=== PATIENT | female | born 1970 | race Caucasian/White ===

== ENCOUNTER 2019-03-10 12:08 | Emergency (ER) | payer SELFPAY ==
[~2019-03-10] VITALS: Wt 81.5 kg
--- NOTE | 2019-03-10 13:11 | ERD ---
ER Documentation Chief Complaint Chief Complaint POSSIBLE NEEDLESTICK ON RIGHT THIGH HPI 49-year-old female patient with a past medical history of anemia presents to the ED stating that she works for a cleaning company. States that she was cleaning an apartment, was taking out the trash and there was a needle that was sticking out of the trash bag and accidentally struck her right thigh. States that the needle was about 1 cm long. Reports that she was not actively bleeding. States that she cleaned her right thigh with hand destination coordinator. Patient reports that she does not know who this needle belongs to. Denies any chest pain, shortness of breath, nausea, vomiting, fever, chills, abdominal pain. Accident happened at 10:30am. ROS All systems reviewed and are negative except as per history of present illness. Medications Home Meds Active Scripts Dolutegravir Sodium (Tivicay) 50 Mg Tablet, 50 MG PO DAILY, #28 TAB Prov:JOSE SCHUMACHER PA-C 03/10/19 Emtricitabine-Tenofovir* (Truvada*) 200-300 Mg Tablet, 1 TAB PO DAILY for 28 Days, TAB Prov:JOSE SCHUMACHER PA-C 03/10/19 Allergies Allergies: Coded Allergies: No Known Allergy (Unverified , 03/10/19) PMhx/Soc Medical and Surgical Hx: pt denies Surgical Hx History of Surgery: No Anesthesia Reaction: No Hx Neurological Disorder: No Hx Respiratory Disorders: No Hx Cardiac Disorders: No Hx Psychiatric Problems: No Hx Alcohol Use: No Hx Substance Use: No Hx Tobacco Use: No FmHx Family History: No diabetes, No coronary disease Physical Exam Vitals Vital Signs Date Temp Pulse Resp B/P (MAP) Pulse Ox O2 O2 Flow FiO2 Time Delivery Rate 03/10/19 98.7 80 18 158/65 100 Room Air 15:42 (96) 03/10/19 98.8 71 18 170/71 100 12:09 (104) Physical Exam Const: [id number], well-nourished. In no acute distress. Head: Atraumatic, normocephalic Eyes: Normal Conjunctiva without injection ENT: Normal external ear, nose and mouth. Neck: Full range of motion. No meningismus. Resp: Clear to auscultation bilaterally. No wheezing, rhonchi, rales, or crackles. No accessory muscle use. No retractions. Cardio: Regular rate and rhythm, no murmurs Skin: No petechiae or rashes Back: No midline tenderness. No CVA tenderness. Ext: No cyanosis, or edema. Cap refill less than 2 seconds. Distal pulses intact bilaterally. Superficial punctate wound noted of the anterior thigh. No surrounding erythema, edema, purulent discharge, fluctuance or induration. Full range of motion with flexion, extension of bilateral knees as well as hip rotations. Neur: Awake and alert. Normal gait and coordination. Muscle strength 5/5. Sensation intact bilaterally. Psych: Normal Mood and Affect Result Diagram: 03/10/19 1247 03/10/19 1247 Results 24 hrs Laboratory Tests Test 03/10/19 12:47 03/10/19 12:54 03/10/19 15:14 White Blood Count 7.3 10^3/ul Red Blood Count 4.78 10^6/ul Hemoglobin 11.0 g/dl Hematocrit 37.1 % Mean Corpuscular Volume 77.6 fl Mean Corpuscular Hemoglobin 23.0 pg Mean Corpuscular 29.6 g/dl Hemoglobin Concent Red Cell Distribution Width 15.8 % Platelet Count 352 10^3/UL Mean Platelet Volume 11.2 fl Immature Granulocytes % 0.100 % Neutrophils % 59.3 % Lymphocytes % 30.4 % Monocytes % 7.6 % Eosinophils % 1.5 % Basophils % 1.1 % Nucleated Red Blood Cells % 0.0 /100WBC Immature Granulocytes # 0.010 10^3/ul Neutrophils # 4.3 10^3/ul Lymphocytes # 2.2 10^3/ul Monocytes # 0.6 10^3/ul Eosinophils # 0.1 10^3/ul Basophils # 0.1 10^3/ul Nucleated Red Blood Cells # 0.0 10^3/ul Sodium Level 142 mmol/L Potassium Level 4.7 mmol/L Chloride Level 109 mmol/L Carbon Dioxide Level 24 mmol/L Anion Gap 9 Blood Urea Nitrogen 11 mg/dl Creatinine 0.58 mg/dl Est Glomerular Filtrat Rate mL/min > 60 mL/min Glucose Level 92 mg/dl Calcium Level 9.2 mg/dl Total Bilirubin 0.8 mg/dl Direct Bilirubin 0.00 mg/dl Indirect Bilirubin 0.8 mg/dl Aspartate Amino Transf (AST/SGOT) 22 IU/L Alanine 30 IU/L Aminotransferase (ALT/SGPT) Alkaline Phosphatase 60 IU/L Total Protein 7.3 g/dl Albumin 4.3 g/dl Globulin 3.00 g/dl Albumin/Globulin Ratio 1.43 Hepatitis B Surface Antigen NEGATIVE Hepatitis B Surface Antibody NEGATIVE Hepatitis C Antibody NEGATIVE HIV (1&2) Antibody NEGATIVE POC Beta HCG, Qualitative NEGATIVE Procedures/MDM 49-year-old female patient with a past medical history of anemia presents the ED complaining of a right thigh needlestick injury. Patient is afebrile and nontoxic-appearing. A needlestick protocol blood draw was ordered for patient here in the ED which includes hepatitis B, hepatitis C and HIV. CBC: No leukocytosis. No e/o of systemic infection. No e/o anemia. CMP: No e/o severe acidosis, alkalosis, renal failure, diabetic ketoacidosis, liver disease Hep Bs Antigen - Negative Hep Bs Antibody - Negative Hepatitis C Antibody - Negative HIV 1and 2 Antibody- Negative Urine : Negative Patient's wound was also cleaned vigorously with soap and water here in the ED as patient only cleaned her right thigh with hand destination coordinator. HIV prophylaxis was discussed with patient since patient states that she does not know who the needle belongs to as well as their medical history, she would like the HIV Pap medications. This was also discussed with Abdulaziz pharmacist here at [facility] as well as recommended by Up to Date Guidelines - patient will be prescribed Truvada and Tivicay for 28 days and strictly instructed to follow-up with her primary care physician for repeat blood work and further evaluation and treatment. At this time there is low suspicion for any deep space infection, cellulitis, sepsis or other emergent conditions. Diagnosis: Needlestick injury Medications: Tivicay, Truvada Follow up with primary care physician in 1-2 days for repeat blood work as recommended. Instructed patient to return to the ED sooner for any worsening symptoms. Patient's questions were answered. Patient is hemodynamically stable. Patient understood and agreed with discharge plan. Patient discharged stable. Disclaimer: Inadvertent spelling and grammatical errors are likely due to EHR/dictation software use and do not reflect on the overall quality of patient care. Also, please note that the electronic time recorded on this note does not necessarily reflect the actual time of the patient encounter. Departure Diagnosis: Primary Impression: Needlestick injury accident Condition: Stable Patient Instructions: Standard Precautions: [place] Referrals: [facility] YOU HAVE RECEIVED A MEDICAL SCREENING EXAM AND THE RESULTS INDICATE THAT YOU DO NOT HAVE A CONDITION THAT REQUIRES URGENT TREATMENT IN THE EMERGENCY DEPARTMENT. FURTHER EVALUATION AND TREATMENT OF YOUR CONDITION CAN WAIT UNTIL YOU ARE SEEN IN YOUR DOCTORS OFFICE WITHIN THE NEXT 1-2 DAYS. IT IS YOUR RESPONSIBILITY TO MAKE AN APPOINTMENT FOR FOLOW-UP CARE. IF YOU HAVE A PRIMARY DOCTOR --you should call your primary doctor and schedule an appointment IF YOU DO NOT HAVE A PRIMARY DOCTOR YOU CAN CALL OUR PHYSICIAN REFERRAL HOTLINE AT IF YOU CAN NOT AFFORD TO SEE A PHYSICIAN YOU CAN CHOSE FROM THE FOLLOWING [facility] [address] [facility]. [facility] [address] [facility] [address] [facility] [address] [facility] [facility] [address] [facility]. [facility] [address] [facility]. [facility] YOU HAVE RECEIVED A MEDICAL SCREENING EXAM AND THE RESULTS INDICATE THAT YOU DO NOT HAVE A CONDITION THAT REQUIRES URGENT TREATMENT IN THE EMERGENCY DEPARTMENT. FURTHER EVALUATION AND TREATMENT OF YOUR CONDITION CAN WAIT UNTIL YOU ARE SEEN IN YOUR DOCTORS OFFICE WITHIN THE NEXT 1-2 DAYS. IT IS YOUR RESPONSIBILITY TO MAKE AN APPOINTMENT FOR FOLOW-UP CARE. IF YOU HAVE A PRIMARY DOCTOR --you should call your primary doctor and schedule and appointment IF YOU DO NOT HAVE A PRIMARY DOCTOR YOU CAN CALL OUR PHYSICIAN REFERRAL HOTLINE AT . IF YOU CAN NOT AFFORD TO SEE A PHYSICIAN YOU CAN CHOSE FROM THE FOLLOW[facility]: [facility] [address] [place] [address] [facility] [address] [place] [address] [facility] [address] [place] [address] [facility] URGENT [facility]/SPECIALTIES Additional Instructions: Llame al doctor KAYA y jasen kole CLAIRE PARA DENTRO DE 2-3 TAMAYO.Dgale a la secretaria que nosotros le instruimos hacer esta claire.Avise o llame si warren condicin se empeora antes de la claire. Regresa aqui si peor o no mejor. JOSE SCHUMACHER PA-C March 10, 2019 13:11
[2019-03-10] MEDS ORDERED: EMTR1TAB11 PO (15:13)
[2019-03-10] MEDS ORDERED: DOLU50TA PO (15:13)
[2019-03-10 15:42] VITALS: BP 158/65; PULSE 80; RESP 18
== END 2019-03-10 15:43 | disposition home or self-care (01) ==
LOC: FTE 12:08
DX: S71.131A Puncture wound without foreign body, right thigh, initial encounter (principal); W46.0XXA Contact with hypodermic needle, initial encounter; Y92.039 Unspecified place in apartment as the place of occurrence of the external cause
CPT/HCPCS: 80053; 81025; 85025; 86703; 86706; 86803; 87340; 99283